=== PATIENT | female | born 1970 | race Caucasian/White ===

== ENCOUNTER 2016-11-28 15:20 | Emergency (ER) | payer BC ==
--- NOTE | 2016-11-28 15:35 | EDM.PDOC ---
ED HPI Trauma - General Chief Complaint: Upper Extremity Injury/Pain Stated Complaint: LEFT ARM PAIN FROM FALL Time Seen by Provider: 11/28/16 15:33 Source: Reports: Patient History Limitations: Reports: No limitations - History of Present Illness INITIAL COMMENTS - FREE TEXT/NARRATIVE: History of present illness: [46-year-old female presenting with pain in left forearm status post slip and fall. Patient occasions in her kitchen and slipped and landed on her hip which hasn't small bruise and she is unconcerned about but feels that is significant amount of weight landed on her forearm and now active range of motion is painful she comes in requesting an x-ray of her left forearm the] Review of systems: As per history of present illness and below otherwise all systems reviewed and negative. Past medical history: As per history of present illness and as reviewed below otherwise noncontributory. Surgical history: As per history of present illness and as reviewed below otherwise noncontributory. Social history: No reported history of drug or alcohol abuse. Family history: As per history of present illness and as reviewed below otherwise noncontributory. Physical exam: HEENT: Atraumatic, normocephalic, pupils reactive, negative for conjunctival pallor or scleral icterus, mucous membranes moist, throat clear, neck supple, nontender, trachea midline. Lungs: Clear to auscultation, breath sounds equal bilaterally, chest nontender. Heart: S1S2, regular, negative for clicks, rubs, or JVD. Abdomen: Soft, nondistended, nontender. Negative for masses or hepatosplenomegaly. Negative for costovertebral tenderness. Pelvis: Stable nontender. Genitourinary: Deferred. Rectal: Deferred. Extremities: Left arm with some tenderness diffuse from elbow to wrist with some amount of guarding with range of motion, right arm atraumatic, negative for cords or calf pain. Neurovascular unremarkable. Neuro: Awake, alert, oriented. Cranial nerves II through XII unremarkable. Cerebellum unremarkable. Motor and sensory unremarkable throughout. Exam nonfocal. Discharge patient indicated she are to had some oxycodone for chronic back pain and declined any further pain medication. Arm splint applied with good capillary refill and ability to articulate her fingers without any nature of compression color movement sensation temperature intact to fingers. Diagnostics: [X-ray of forearm] Therapeutics: [] Impression: [Left radial head fracture with elbow effusion] Plan: [long arm splint/ call tomorrow for appt for f/u next week with ortho] Definitive disposition and diagnosis as appropriate pending reevaluation and review of above. Allergies/ADRs: Allergies Sulfa (Sulfonamide Antibiotics) Allergy (Verified 11/28/16 15:38) Hives Home Medications: Ambulatory Orders ALPRAZolam [Alprazolam ER] 0.5 mg PO BID 11/28/16 [Confirmed 11/28/16] Gabapentin [Neurontin] 300 mg PO TID 11/28/16 [Confirmed 11/28/16] Phentermine HCl 37.5 mg PO DAILY 11/28/16 [Confirmed 11/28/16] Social & Family History - Tobacco Use Smoking Status *Q: Never Smoker Second Hand Smoke Exposure: No - Alcohol Use Days Per Week of Alcohol Use: 2 Number of Drinks Per Day: 3 Total Drinks Per Week: 6 - Recreational Drug Use Recreational Drug Use: No Review of Systems - Review of Systems Review Of Systems: See Below (see history of present illness) Trauma Exam - Physical Exam Exam: See Below (See history of present illness) Course - Vital Signs Last Recorded V/S: Last Vital Signs Temp 36.2 C 11/28/16 15:36 Pulse 99 11/28/16 15:36 Resp 16 11/28/16 15:36 BP 124/79 11/28/16 15:36 Pulse Ox 95 11/28/16 15:36 - Orders/Labs/Meds Orders: Active Orders 24 hr Category Date Time Status Forearm 2V Lt [CR] Stat Exams 11/28/16 15:33 Taken Departure - Departure Time of Disposition: 16:46 Disposition: Home, Self-Care 01 Condition: good Clinical Impression: Closed fracture of radius Instructions: How to Use a Sling, [id number], Radial Head Fracture, Easy-to- Read Forms: ED Department Discharge Additional Instructions: The following information is given to patients seen in the emergency department who are being discharged to home. This information is to outline your options for follow-up care. We provide all patients seen in our emergency department with a follow-up referral. The need for follow-up, as well as the timing and circumstances, are variable depending upon the specifics of your emergency department visit. If you don't have a primary care physician on staff, we will provide you with a referral. We always advise you to contact your personal physician following an emergency department visit to inform them of the circumstance of the visit and for follow-up with them and/or the need for any referrals to a consulting specialist. The emergency department will also refer you to a specialist when appropriate. This referral assures that you have the opportunity for follow-up care with a specialist. All of these measure are taken in an effort to provide you with optimal care, which includes your follow-up. Under all circumstances we always encourage you to contact your private physician who remains a resource for coordinating your care. When calling for follow-up care, please make the office aware that this follow-up is from your recent emergency room visit. If for any reason you are refused follow-up, please contact the [facility] Emergency Department at and asked to speak to the emergency department charge nurse. Use sling Take pain medications you have with you Call tomorrow for appointment with orthopedics for followup next week Return to ED as needed as discussed [facility] - [facility] Professional Building [address] [place] [address], [address] [place] [address] - My Orders Last 24 Hours: My Active Orders 11/28/16 15:33 Forearm 2V Lt [CR] Stat - Assessment/Plan Last 24 Hours: My Active Orders 11/28/16 15:33 Forearm 2V Lt [CR] Stat
[2016-11-28 17:28] VITALS: BP 137/67
--- NOTE | 2016-11-29 15:31 | CR ---
.EXAM DATE: 11/28/16 PATIENT'S AGE: 46 Patient: GALILEO BLANCO Facility: [place], [place] Site . Site : 1970 Study: XRay Extremity Left forearm [id number] 4:03:03 PM Ordering Physician: Doctor Allen Final Report: INDICATION: Forearm pain TECHNIQUE: Forearm radiograph 2 views COMPARISON: None FINDINGS: Radial head fracture identified on AP view of the left forearm. No additional fracture identified. Anterior left elbow joint effusion present on the lateral projection. IMPRESSION: 1. Left radial head fracture with associated left elbow joint effusion. Dictated by Morris Stewart MD @ 11/28/2016 4:22:39 PM Dictated by: Morris Stewart MD @ 11/28/2016 16:22:47 (Electronic Signature) Report Signed by Proxy. MTDRicki
== END 2016-11-28 17:25 | disposition home or self-care (01) ==
LOC: MW.ED 15:20
DX: S52.122A Displaced fracture of head of left radius, initial encounter for closed fracture (principal); W01.0XXA Fall on same level from slipping, tripping and stumbling without subsequent striking against object, initial encounter; Y92.89 Other specified places as the place of occurrence of the external cause; Z88.2 Allergy status to sulfonamides; Z79.899 Other long term (current) drug therapy
CPT/HCPCS: 29105; 73090; 99283; A4566

== ENCOUNTER → 2016-12-03 | Outpatient (CLI) | payer BC ==
--- NOTE | 2016-12-03 11:40 | CR ---
EXAMINATION: Left elbow HISTORY: Effusion COMPARISON: None TECHNIQUE: 3 views FINDINGS/IMPRESSION: There is a minimally displaced intra-articular fracture through the radial head with a moderate underlying joint effusion. The remaining osseous structures and joint spaces appear intact. Bone mineralization is normal.
--- NOTE | 2016-12-03 14:24 | CT ---
EXAMINATION: CT left elbow HISTORY: Fusion COMPARISON: Radiographs from the same day TECHNIQUE: Axial CT images obtained through the left elbow without contrast. Coronal and sagittal re constructions obtained. FINDINGS: There is a minimally displaced vertical fractures through the anterior aspect of the radia l head with intra-articular extension. There is 1 mm of step-off at the articular surface. There is a moderate underlying joint effusion. The remaining osseous structures and joint spaces appear intac t. Bone mineralization is otherwise normal. IMPRESSION: Minimally displaced intra-articular radial head fracture.
== END ==
LOC: MW.CHORTHO 07:38
PROVIDERS: ATTEND Physician Assistant
DX: M25.522 Pain in left elbow (principal); M25.422 Effusion, left elbow; S52.122A Displaced fracture of head of left radius, initial encounter for closed fracture
CPT/HCPCS: 73080-26-LT; 73080-LT; 73200-26-LT; 73200-LT

== ENCOUNTER 2017-06-28 14:27 | Emergency (ER) | payer BC ==
[2017-06-28 14:47] VITALS: BP 125/80
[2017-06-28] MEDS ORDERED: Albuterol/Ipratropium 3.0-0.5 MG/3 ML Neb Soln NEB ONE (14:56)
--- NOTE | 2017-06-28 15:05 | EDM.PDOC ---
ED HPI GENERAL MEDICAL PROBLEM - General Chief Complaint: Respiratory Problem Stated Complaint: SOB Time Seen by Provider: 06/28/17 14:39 Source of Information: Reports: Patient History Limitations: Reports: No Limitations - History of Present Illness INITIAL COMMENTS - FREE TEXT/NARRATIVE: History of present illness: []Patient has had a 2 day history of chest pain with breathing, dry cough. Patient denies any edema, fevers chills or sweats. Patient denies any history of asthma, chronic bronchitis or smoking history. She has had pleurisy in the past. Review of systems: As per history of present illness and below otherwise all systems reviewed and negative. Past medical history: As per history of present illness and as reviewed below otherwise noncontributory. Surgical history: As per history of present illness and as reviewed below otherwise noncontributory. Social history: No reported history of drug or alcohol abuse. Family history: As per history of present illness and as reviewed below otherwise noncontributory. Physical exam: General: Well developed, well nourished in NAD HEENT: Atraumatic, normocephalic, pupils reactive, negative for conjunctival pallor or scleral icterus, mucous membranes moist, throat clear, neck supple, nontender, trachea midline. Lungs: Left basilar crackles to auscultation, decreased breath sounds equal bilaterally, chest nontender. Heart: S1S2, regular, negative for clicks, rubs, or JVD. Abdomen: Soft, nondistended, nontender. Negative for masses or hepatosplenomegaly. Negative for costovertebral tenderness. Pelvis: Stable nontender. Genitourinary: Deferred. Rectal: Deferred. Extremities: Atraumatic, negative for cords or calf pain. Neurovascular unremarkable. Neuro: Awake, alert, oriented. Cranial nerves II through XII unremarkable. Cerebellum unremarkable. Motor and sensory unremarkable throughout. Exam nonfocal. Diagnostics: []Chest x-ray negative Therapeutics: [] Impression: []Pleurisy Plan: []Take aspirin on an anti-inflammatory for pain follow-up with the primary care physician return if any symptoms worsen Definitive disposition and diagnosis as appropriate pending reevaluation and review of above. Chest Pain Score (Numeric/FACES): 6 - Related Data Allergies Allergy/AdvReac Type Severity Reaction Status Date / Time Sulfa (Sulfonamide Allergy Hives Verified 06/28/17 14:47 Antibiotics) Home Meds: Home Meds ALPRAZolam [Alprazolam ER] 0.5 mg PO BID 11/28/16 [History] Gabapentin [Neurontin] 300 mg PO BID 11/28/16 [History] Ascorbic Acid [Vitamin C] 1,000 mg PO BID 06/28/17 [History] Aspirin 81 mg PO BRK 06/28/17 [History] Cyclobenzaprine [Flexeril] 10 mg PO BEDTIME 06/28/17 [History] Escitalopram [Lexapro] 20 mg PO DAILY 06/28/17 [History] Ibuprofen 800 mg PO BID PRN 06/28/17 [History] Levothyroxine [Synthroid] 100 mcg PO ACBREAKFAST 06/28/17 [History] Melatonin 5 mg PO BEDTIME PRN 06/28/17 [History] oxyCODONE HCl/Acetaminophen [Endocet 10-325 mg Tablet] 1 tab PO Q6H PRN [History] Past Medical History Musculoskeletal History: Reports: Back Pain, Chronic Other Musculoskeletal History: bulging disc Psychiatric History: Reports: Anxiety, Depression Other Psychiatric History: sleep disorder Endocrine/Metabolic History: Reports: Hypothyroidism - Infectious Disease History Infectious Disease History: Reports: Chicken Pox - Past Surgical History GI Surgical History: Reports: Appendectomy Female Surgical History: Reports: Breast Biopsy, Hysterectomy Social & Family History - Family History Family Medical History: Noncontributory - Tobacco Use Smoking Status *Q: Never Smoker Years of Tobacco use: 20 Packs/Tins Daily: 0.1 Second Hand Smoke Exposure: No - Caffeine Use Caffeine Use: Reports: None - Alcohol Use Days Per Week of Alcohol Use: 2 Number of Drinks Per Day: 3 Total Drinks Per Week: 6 - Recreational Drug Use Recreational Drug Use: No ED ROS GENERAL - Review of Systems Review Of Systems: See Below (See history of present illness) ED EXAM, GENERAL - Physical Exam Exam: See Below (See history of present illness) Course - Vital Signs Last Recorded V/S: Last Vital Signs Temp 97.0 F 06/28/17 14:45 Pulse 84 06/28/17 14:45 Resp 18 06/28/17 14:45 BP 125/80 06/28/17 14:45 Pulse Ox 95 06/28/17 14:45 - Orders/Labs/Meds Orders: Active Orders 24 hr Category Date Time Status RT Aerosol Therapy [RC] ASDIRECTED Care 06/28/17 14:58 Active Chest 2V [CR] Stat Exams 06/28/17 15:33 Taken Meds: Medications Discontinued Medications Generic Name Dose Route Start Last Admin Trade Name Eugene PRN Reason Stop Dose Admin Albuterol/Ipratropium 3 ml 06/28/17 14:56 06/28/17 15:08 Duoneb 3.0-0.5 Mg/3 Ml NEB 06/28/17 14:57 3 ml ONETIME ONE Administration Departure - Departure Time of Disposition: 16:19 Disposition: Home, Self-Care 01 Condition: Good Clinical Impression: Pleurisy - Discharge Information Referrals: PCP,None [Primary Care Provider] - Forms: ED Department Discharge Additional Instructions: The following information is given to patients seen in the emergency department who are being discharged to home. This information is to outline your options for follow-up care. We provide all patients seen in our emergency department with a follow-up referral. The need for follow-up, as well as the timing and circumstances, are variable depending upon the specifics of your emergency department visit. If you don't have a primary care physician on staff, we will provide you with a referral. We always advise you to contact your personal physician following an emergency department visit to inform them of the circumstance of the visit and for follow-up with them and/or the need for any referrals to a consulting specialist. The emergency department will also refer you to a specialist when appropriate. This referral assures that you have the opportunity for follow-up care with a specialist. All of these measure are taken in an effort to provide you with optimal care, which includes your follow-up. Under all circumstances we always encourage you to contact your private physician who remains a resource for coordinating your care. When calling for follow-up care, please make the office aware that this follow-up is from your recent emergency room visit. If for any reason you are refused follow-up, please contact the [facility] Emergency Department at and asked to speak to the emergency department charge nurse. Anti-inflammatories for pain and inflammation follow-up with her primary care physician return if any symptoms should change or worsen. [facility] [address] [place], [place] [id number] - My Orders Last 24 Hours: My Active Orders 06/28/17 14:58 RT Aerosol Therapy [RC] ASDIRECTED 06/28/17 15:33 Chest 2V [CR] Stat - Assessment/Plan Last 24 Hours: My Active Orders 06/28/17 14:58 RT Aerosol Therapy [RC] ASDIRECTED 06/28/17 15:33 Chest 2V [CR] Stat
--- NOTE | 2017-06-30 14:35 | CR ---
EXAM DATE: 06/28/17 PATIENT'S AGE: 46 Patient: GALILEO BLANCO Facility: [place], [place] Site . Site : 1970 Study: XRay Chest [id number] 4:10:26 PM Ordering Physician: Michael Smith Final Report: INDICATION: sob TECHNIQUE: PA and lateral chest films are submitted. COMPARISON: Chest x-rays 09/07/2014. FINDINGS: Heart size and pulmonary vasculature within normal limits. Elevation of the right hemidiaphragm with mild chronic scarring or atelectasis at the right lung base. At the left lung base, there are streaky densities in the lower lobes. These appear slightly more prominent than on 09/07/2014 and mild new infiltrate in the left lower lobe is suspected. Heart size and pulmonary vasculature within normal limits. IMPRESSION: Linear densities at both lung bases, most of which are chronic. There may be minimal acute infiltrate at the left lung base as well. Recommend clinical correlation and chest x-ray followup. Dictated by You Govea MD @ 06/28/2017 4:30:20 PM Dictated by: You Govea MD @ 06/28/2017 16:30:31 (Electronic Signature) Report Signed by Proxy. DARIAN
== END 2017-06-28 16:46 | disposition home or self-care (01) ==
LOC: MW.ED 14:27
DX: R09.1 Pleurisy (principal); Z88.2 Allergy status to sulfonamides; Z79.82 Long term (current) use of aspirin; Z79.899 Other long term (current) drug therapy
CPT/HCPCS: 71020; 71020-26; 94640; 99284